=== PATIENT | female | born 1940 | race Caucasian/White ===

== ENCOUNTER → 2016-04-05 | Outpatient (CLI) | payer OTHER | LOC: FIMAGING 11:11 | DX: Z12.31 Encounter for screening mammogram for malignant neoplasm of breast (principal) | CPT/HCPCS: G0202 ==

== ENCOUNTER 2017-01-15 09:38 | Observation (INO) | payer OTHER ==
[2017-01-15] MEDS ORDERED: BACITRACIN IRRIGATION/NS 50,000 UNITS/1,000 ML BTL IRR ONE (09:40)
[2017-01-15] MEDS ORDERED: ceFAZolin 2 GM/SWFI 2 GM/20 ML SYR IVP ONE (09:40)
[2017-01-15] MEDS ORDERED: NS 1,000 ML IV ONE (09:40)
--- NOTE | 2017-01-15 10:03 | CPEKG ---
Heart Rate: 64 RR Interval: 938 P-R Interval: 184 QRSD Interval: 84 QT Interval: 392 QTC Interval: 405 P [place]: 72 QRS [place]: -64 T Wave [place]: -57 EKG Severity - ABNORMAL ECG - EKG Impression: SINUS RHYTHM EKG Impression: LEFT ANTERIOR FASCICULAR BLOCK EKG Impression: LOW VOLTAGE IN FRONTAL LEADS EKG Impression: NONSPECIFIC T ABNORMALITIES, DIFFUSE LEADS Electronically Signed By: Sotero Beauchamp 15-Jan-2017 10:48:34
[2017-01-15 10:20] LABS: ADD DIFF? NO; ADD MORPH? NO; ADD SCAN? NO; ATYPICAL LYMPHOCYTE FLAG 0 (0-99); FRAGMENT RBC FLAG 0 (0-99); HEMATOCRIT 47.6 % (38.0-47.0); LEFT SHIFT FLG 0 (0-99); LIPEMIA HEMOLYSIS FLAG 80 (0-99); MEAN CELL HEMOGLOBIN 30.2 pg (27.9-34.1); MEAN CELL HEMOGLOBIN CONCENTR. 33.6 g/dL (32.4-36.7); MEAN PLATELET VOLUME 10.8 fL (8.7-11.7); PLATELET CLUMPS FLAG 0 (0-99); PLATELET COUNT 184 10^3/uL (150-400); RED BLOOD CELL COUNT 5.29 10^6/uL (4.18-5.33); RED CELL DISTRIBUTION WIDTH 13.2 % (11.5-15.2)
[2017-01-15 10:29] LABS: INR 0.89 (0.83-1.16); PROTIME(PATIENT) 12.3 SEC (12.0-15.0)
[2017-01-15 10:32] LABS: ANION GAP 10 mEq/L (8-16); CALCIUM 9.3 mg/dL (8.5-10.4); CARBON DIOXIDE 25 mEq/l (22-31); CHLORIDE 108 mEq/L (97-110); CREATININE 0.8 mg/dL (0.6-1.0); GLOMERULAR FILTRATION RATE > 60; GLUCOSE 96 mg/dL (70-100); POTASSIUM 4.3 mEq/L (3.5-5.2); SODIUM 143 mEq/L (134-144)
[2017-01-15] MEDS ORDERED: fentaNYL 100 MCG/2 ML INJ ONE (10:37)
[2017-01-15] MEDS ORDERED: MIDAZOLAM 2 MG/2 ML VIAL ONE (10:37)
[2017-01-15] MEDS ORDERED: BUPIVACAINE 0.5% 30 ML SDV ONE (10:37)
[2017-01-15] MEDS ORDERED: LIDOCAINE 1% 300 MG/30 ML SDV ONE (10:37)
[2017-01-15] MEDS ORDERED: LIDO/EPI 1% **for epidural** 30 ML SDV ONE (10:37)
--- NOTE | 2017-01-15 10:44 | PDHPUP ---
History & Physical Update H&P update statement: This history and physical update is based on an assessment of the patient which was completed after admission or registration (within 24 hours), but prior to the surgery/procedure. H&P update: H&P reviewed & patient examined, no change in patient's condition since H&P completed
--- NOTE | 2017-01-15 10:44 | PDPROPOC ---
Sedation Plan of Care Sedation Plan of Care: vital signs stable, mental status noted, patient educated of risks, benefits, alternatives, patient can tolerate sedation ASA Classification: ASA 1 Planned drugs: fentanyl, midazolam Mallampati Score: Class 1 Mallampati Reference Image: Patient passed 3-3-2 rule?: Yes
[2017-01-15] MEDS ORDERED: IOPAMIDOL (ISOVUE-300) 150 ML BTL ONE (11:06)
--- NOTE | 2017-01-15 14:10 | CPEKG ---
Heart Rate: 77 RR Interval: 779 P-R Interval: 204 QRSD Interval: 90 QT Interval: 376 QTC Interval: 426 P [place]: 57 QRS [place]: -40 EKG Severity - ABNORMAL ECG - EKG Impression: SINUS RHYTHM EKG Impression: ATRIAL PREMATURE COMPLEX EKG Impression: LOW VOLTAGE THROUGHOUT EKG Impression: NONSPECIFIC T ABNORMALITIES, DIFFUSE LEADS Electronically Signed By: Sotero Beauchamp 15-Jan-2017 16:02:06
[2017-01-15] MEDS: ACETAMINOPHEN 325 MG TAB PO PRN ×2 (14:59→21:00)
--- NOTE | 2017-01-15 16:00 | EPPROC ---
Electrophysiology Procedure Note: PROCEDURE PERFORMED: 1. Implantation of an A/V Pacemaker 2. Subclavian vein angiography 3. Fluoroscopy INDICATION: Chronotropic incompetence. PROCEDURE NOTE: Patient presented to the cardiac catheterization laboratory in a fasting, post absorptive state . EP RN administered sedation. The left infraclavicular area was prepped and draped in the usual sterile fashion. Lidocaine plus bupivacaine was used for local anesthesia. Left subclavian venography was performed by injection of iodinated contrast into the left antecubital vein. This was done to assure patency of the vein and also to assess for any anatomical aberrations. Using a combination of blunt and sharp dissection and electrocautery, the dissection was carried down to the prepectoral fascia. A pocket was made in this anatomical plane. All bleeding was controlled with electrocautery. The pocket was packed with gauze soaked in antibiotic solution. Fluoroscopy was utilized during the entire procedure for venous access and placement of the leads. Using a direct stick technique the left extrathoracic axillary vein was accessed with 2 sticks using the modified Seldinger technique. Placement of the guidewires into the venous system was confirmed by low-pressure blood return and also by visualizing the guidewires advancing into the inferior vena cava. A purse string suture was applied around the guidewires. Two #6 Sinhala sheaths were advanced under fluoroscopic guidance over the guidewire. An active fixation ventricular lead was advanced into the right ventricular apex and screwed in place. An active fixation atrial lead was advanced into the right atrial appendage and screwed in place. The peel away sheaths were removed. Pacing thresholds, sensing parameters and lead impedances were measured. There was no diaphragmatic stimulation at maximum output. The leads were sutured to the prepectoral fascia with 3 nonabsorbable sutures each. The pocket was again inspected for any bleeding. The leads were attached to the pacemaker securely. The pacemaker was inserted into the pocket and secured in place with a nonabsorbable suture. Fluoroscopy was performed in NIELSEN and JACQUELINE planes to verify right-sided placement of the leads. Also fluoroscopy of the pacemaker pocket was performed. The pacemaker pocket was closed in 3 layers with absorbable monocryl sutures and leta. Appropriate dressing was applied. The patient left the cardiac catheterization laboratory in stable condition. Serial Numbers: 1. Device: HAIDER/[employer] ASSURITY MRI, [id number]. SN: [id number] 2. Atrial Lead: ABT/SJM TENDRIL STS, /46. SN: [id number] 3. Ventricular Lead: ABT/SJM TENDRIL STS, /52. SN: [id number] Stimulation Thresholds & Impedance Measurements: 1. Atrial Lead: 1.25V@0.5ms / 3.3mV / 455 ohm 2. Ventricular Lead 0.3v@0.5ms / 8.6mV / 704 Yovani Pacing Parameters 1. Pacing mode: DDDR 2. Lower rate: 60ppm 3. Upper tracking rate: 130 ppm 4. Upper sensor rate: 130 ppm Patient Problems: Problems Problem Status Onset Bradycardia Acute Pneumonia Acute UTI (urinary tract infection) Acute Left lower lobe pneumonia Acute
[2017-01-16 05:51] LABS: ANION GAP 9 mEq/L (8-16); CALCIUM 8.7 mg/dL (8.5-10.4); CARBON DIOXIDE 24 mEq/l (22-31); CHLORIDE 109 mEq/L (97-110); CREATININE 0.7 mg/dL (0.6-1.0); GLOMERULAR FILTRATION RATE > 60; GLUCOSE 90 mg/dL (70-100); POTASSIUM 4.1 mEq/L (3.5-5.2); SODIUM 142 mEq/L (134-144)
[2017-01-16 05:57] LABS: % IMMATURE GRANULYOCYTES 0.2 % (0.0-1.1); ABSOLUTE IMMATURE GRANULOCYTES 0.01 10^3/uL (0.00-0.10); ADD DIFF? NO; ADD MORPH? NO; ADD SCAN? NO; ATYPICAL LYMPHOCYTE FLAG 0 (0-99); FRAGMENT RBC FLAG 0 (0-99); HEMOGLOBIN 14.4 g/dL (12.6-16.3); LEFT SHIFT FLG 0 (0-99); LIPEMIA HEMOLYSIS FLAG 80 (0-99); MEAN CELL HEMOGLOBIN 30.2 pg (27.9-34.1); MEAN CELL HEMOGLOBIN CONCENTR. 33.5 g/dL (32.4-36.7); MEAN CELL VOLUME 90.1 fL (81.5-99.8); MEAN PLATELET VOLUME 10.9 fL (8.7-11.7); PLATELET CLUMPS FLAG 0 (0-99); PLATELET COUNT 165 10^3/uL (150-400); RED BLOOD CELL COUNT 4.77 10^6/uL (4.18-5.33); RED CELL DISTRIBUTION WIDTH 13.4 % (11.5-15.2)
[2017-01-16] MEDS: ACETAMINOPHEN 325 MG TAB PO PRN (06:43)
[2017-01-16 07:48] VITALS: BP 116/59; PULSE 72; RESP 18; TEMP 98.7; O2SAT 90
--- NOTE | 2017-01-16 09:06 | CPEKG ---
Heart Rate: 69 RR Interval: 870 P-R Interval: 192 QRSD Interval: 88 QT Interval: 416 QTC Interval: 446 P [place]: 58 QRS [place]: -62 T Wave [place]: 40 EKG Severity - OTHERWISE NORMAL ECG - EKG Impression: SINUS RHYTHM EKG Impression: LOW VOLTAGE IN FRONTAL LEADS Electronically Signed By: Sotero Beauchamp 16-Jan-2017 11:29:35
--- NOTE | 2017-01-16 12:15 | ASDISCHSUM ---
Discharge Information Plan Status:Home with No Needs Medically Cleared to Leave:01/15/2017 Discharge Date:01/16/2017 10:31 AM CM D/C Disposition:Home, Routine, Self-Care ADT D/C Disposition:Home, Routine, Self-Care Projected Discharge Date:01/16/2017 10:31 AM Transportation at D/C:Family Discharge Delay Reason: Follow-Up Date:01/16/2017 10:31 AM Discharge Slot: Final Diagnosis: Placement Information Patient Contact Information Contact Name:FRANCINE Relationship: Address:[address] [place] [address] City:[place] Alternate Phone: State/Zip Code:[place] [address] Email: Financial Information Financial Class: Primary Plan Desc:MEDICARE OUTPATIENT Primary Plan Number:[id number] Secondary Plan Desc:ARCELIA Secondary Plan Number:[id number] Assessment Information LACE LACE Length of stay for Answers: Less than 1 day current admission Acuity / Level of Care Answers: No. Emergency dept visits in Answers: 0 last 6 months Date Signed: 01/16/2017 10:03 AM Electronically Signed By:Stephanie Banerjee RN Intervention Information Intervention Type:*DANAE-Signed Date of Service:01/16/2017 11:27 AM Patient Type:Observation Staff Member:Maria De Jesus Escobar Hours: Discipline: Severity: Comment:
--- NOTE | 2017-01-16 18:57 | GDS ---
[f rep st] DISCHARGE SUMMARY DISCHARGE DIAGNOSIS: 1. Sick sinus syndrome. 2. Status post dual-chamber pacemaker implant. 3. Paroxysmal atrial fibrillation. 4. Prior pulmonary embolism. BRIEF HISTORY: This is a 76-year-old woman with a history of PAF pulmonary embolism with a Zio monit or demonstrating rapid ventricular rates in the setting of atrial fibrillation up to 180 beats per mi nute, as well as ventricular pauses up to 4 seconds. She has a history of syncope but none related t o these episodes. She is a patient of Dr. Jean Baptiste and was referred to Dr. Beauchamp for pacemaker implant. HOSPITAL COURSE: Dr. Beauchamp implanted a [employer] Assurity MRI dual-chamber pacemaker. S ettings: Mode is DDDR with a base rate of 60 beats per minute and upper rate of 130 beats per minute . On the morning of discharge, pacemaker interrogation demonstrated normal function with atrial thre shold capture of 0.75 V at 0.5 milliseconds. P-waves were 2.5 mV. Lead impedance is 450 ohms. RV c apture threshold was 0.375 V at 0.5 milliseconds. R-waves 7.3 mV and lead impedance 530 ohms. The p acemaker site was dry and intact with a gauze and Opsite bandage without any bleeding. There was mil d swelling. The patient denied any significant discomfort at the pacemaker site. No chest pain, pre ssure, or shortness of breath. Chest x-ray the morning of discharge demonstrated good lead placement and no pneumothorax. LAB WORK: WBC is 6.38, hemoglobin 14.4, hematocrit 43, platelets 165. Sodium 142, potassium 4.1, ch loride 109, bicarb 24, BUN 23, creatinine 0.7, glucose 90. PHYSICAL EXAMINATION: VITAL SIGNS: Blood pressure is 116/59, pulse is 72, respirations 18, temperat ure 37.1, O2 saturation on 2 L is 90%. GENERAL: She is alert and oriented in no acute distress, sit ting up in the chair. CARDIAC: Regular rate and rhythm without murmur, rub, or gallop. LUNGS: Dim inished breath sounds throughout and fine crackles in the bases. Pacemaker site gauze dressing intac t, no bleeding, mild swelling at the pacemaker pocket. DISCHARGE INSTRUCTIONS: The patient was given verbal and written post pacemaker implant instructions . DISCHARGE MEDICATIONS: Please see discharge medication reconciliation. Of note, Xarelto will be res tarted 48 hours post implant on the . FOLLOWUP: She has a followup for pacemaker and wound check at [facility] on January 24, 2017, at 11:30 and a followup with Dr. Beauchamp on February 21, 2017, at 1:30. /[id number]/MODL
== END 2017-01-16 10:31 | disposition home or self-care (01) ==
LOC: FCATH 09:38 → F2W 12:47
PROVIDERS: ADMIT Internal Medicine Cardiovascular Disease; ATTEND Internal Medicine Cardiovascular Disease
PROC: 0JH606Z Insertion of Pacemaker, Dual Chamber into Chest Subcutaneous Tissue and Fascia, Open Approach (ICD-10-PCS; principal; 2017-01-15)
PROC: 02HK3JZ Insertion of Pacemaker Lead into Right Ventricle, Percutaneous Approach (ICD-10-PCS; principal; 2017-01-15)
PROC: 02H63JZ Insertion of Pacemaker Lead into Right Atrium, Percutaneous Approach (ICD-10-PCS; principal; 2017-01-15)
DX: I49.5 Sick sinus syndrome (principal); I48.0 Paroxysmal atrial fibrillation; R55 Syncope and collapse; Z86.711 Personal history of pulmonary embolism; Z79.01 Long term (current) use of anticoagulants
CPT/HCPCS: 33208; 71010; 71020; 93005; C1785; C1898; J0690; J2250; Q9967; J3010

== ENCOUNTER → 2017-03-08 | Outpatient (CLI) | payer OTHER | LOC: BHFA 15:15 | PROVIDERS: ATTEND Internal Medicine Cardiovascular Disease | DX: I48.91 Unspecified atrial fibrillation (principal) ==

== ENCOUNTER → 2018-03-04 | Outpatient (CLI) | payer OTHER | LOC: BHFA 09:00 | PROVIDERS: ATTEND Internal Medicine Cardiovascular Disease | DX: I48.91 Unspecified atrial fibrillation (principal); R06.02 Shortness of breath | CPT/HCPCS: 78452; 93017; A9500; J2785 ==

== ENCOUNTER 2018-05-29 18:50 | Emergency (ER) | payer OTHER ==
[2018-05-29] MEDS ORDERED: ONDANSETRON 4 MG/2 ML VIAL IVP ONE (19:07)
[2018-05-29] MEDS ORDERED: NS 1,000 ML IV ONE (19:07)
[2018-05-29 19:30] LABS: PLATELET COUNT 163 10^3/uL (150-400)
[2018-05-29] MEDS ORDERED: ONDANSETRON 4MG PREPACK#2 BTL TAKEHOME ONE (19:40)
[2018-05-29] MEDS ORDERED: LOPERAMIDE HCL 2 MG CAP PO ONE (19:40)
--- NOTE | 2018-05-29 19:44 | EDPHY ---
H & P Stated Complaint: N/V/D since this am Time Seen by Provider: 05/29/18 19:07 HPI/ROS: CHIEF COMPLAINT: Vomiting and diarrhea HISTORY OF PRESENT ILLNESS: 78-year-old female presents with vomiting and diarrhea. Onset of loose stools at 3:00 a.m. Multiple episodes of watery stools throughout the day. Onset of nausea and vomiting this afternoon. Associated with joint achiness and abdominal cramping. No fever or chills. has diarrhea, onset today, no vomiting. Concerned about influenza. REVIEW OF SYSTEMS: complete 10 point ROS reviewed and is negative except for the noted elements in the HPI - Personal History Tetanus Vaccine Date: < 10 YEARS - Medical/Surgical History Hx Asthma: No Hx Chronic Respiratory Disease: Yes Hx Diabetes: No Hx Cardiac Disease: Yes Hx Renal Disease: No Hx Cirrhosis: No Hx Alcoholism: No Hx HIV/AIDS: No Hx Splenectomy or Spleen Trauma: No Other PMH: Breast cancer, PE, michael, appy, tonsilectomy, pneumonia, macular degeneration, Afib, chronic hypoxia on home oxygen - Social History Smoking Status: Former smoker Alcohol Use: Sober Additional Social History: - Physical Exam Exam: General Appearance: Alert, pleasant Eyes: Pupils equal and round, no conjunctival pallor ENT, Mouth: Mucous membranes dry Neck: Normal inspection Respiratory: Lungs are clear to auscultation Cardiovascular: Regular rate and rhythm Gastrointestinal: Abdomen is soft and nontender Neurological: A&O, nonfocal, normal gait Skin: Warm and dry Extremities: Normal inspection Psychiatric: Mood and affect normal Constitutional: Initial Vital Signs Temperature (C) 37.1 C 05/29/18 19:01 Heart Rate 85 05/29/18 19:01 Respiratory Rate 16 05/29/18 19:01 Blood Pressure 107/73 05/29/18 19:01 O2 Sat (%) 88 L 05/29/18 19:01 O2 Delivery Mode Room Air O2 (L/minute) 2 Allergies/Adverse Reactions: Anesthetics - Amide Type Allergy (Verified 05/02/13 19:26) Other-Enter Comments Anesthetics - Linsey Type- Parabens [Anesthetics - Linsey Type] Allergy (Verified 05/02/13 19:26) Other-Enter Comments general anesthetics Allergy (Severe, Uncoded 05/02/13 19:02) Other-Enter Comments Home Medications: Medication Instructions Recorded Colestipol HCl [Colestid (*)] 1 gm PO HS 05/03/13 Rivaroxaban [Xarelto] 20 mg PO HS #0 01/16/17 Medical Decision Making ED Course/Re-evaluation: This patient presents with vomiting and diarrhea, consistent with gastroenteritis. I do not suspect a serious intra-abdominal etiology for symptoms, given benign abdominal exam. IV normal saline 1 L and Zofran 4 mg IV given. Imodium given for diarrhea. 8:00 p.m.-feels much better, tolerating oral fluids well, wants to go home. Abdomen is soft and nontender. Discharge instructions given. Zofran prepack given. Differential Diagnosis: Differential diagnosis includes though it is not limited to appendicitis, cholecystitis, diverticulitis, pyelonephritis, bowel perforation, small bowel obstruction. - Data Points Laboratory Results: Laboratory Results 05/29/18 19:20 05/29/18 19:20 Medications Given: Discontinued Medications Sodium Chloride (Ns) 1,000 mls @ 0 mls/hr IV EDNOW ONE; Wide Open PRN Reason: Protocol Stop: 05/29/18 19:08 Last Admin: 05/29/18 19:20 Dose: 1,000 mls Loperamide HCl ( Imodium) 2 mg PO EDNOW ONE Stop: 05/29/18 19:41 Last Admin: 05/29/18 19:52 Dose: 2 mg Ondansetron HCl (Zofran) 4 mg IVP EDNOW ONE Stop: 05/29/18 19:08 Last Admin: 05/29/18 19:21 Dose: 4 mg Ondansetron HCl (Zofran Odt 4 Mg Prepack#2) 1 btl TAKEHOME EDNOW ONE Stop: 05/29/18 19:41 Last Admin: 05/29/18 20:22 Dose: 1 btl Departure - Departure Disposition: Home, Routine, Self-Care Clinical Impression: Gastroenteritis Condition: Good Instructions: Gastroenteritis (ED) Additional Instructions: 1. Clear liquids for 24 hours. 2. Advance diet as tolerated. I suggest the BRAT diet to start: bananas, rice, applesauce and toast. 3. Return for worsening symptoms, persistent vomiting, abdominal pain, any concerns. 4. Take Zofran every 6 hours as needed for nausea. 5. Take Imodium as directed on the packagingg as needed for diarrhea. 6. Call in 2-3 hours for influenza test results. Referrals: Surekha Burleson MD [Primary Care Provider] - As per Instructions
[2018-05-29 20:27] VITALS: BP 115/76
== END 2018-05-29 20:26 | disposition home or self-care (01) ==
DX: K52.9 Noninfective gastroenteritis and colitis, unspecified (principal)
CPT/HCPCS: 96374; 99284; J2405

== ENCOUNTER → 2018-06-28 | Outpatient (CLI) | payer OTHER | LOC: FIMAGING 10:24 | PROVIDERS: ATTEND Internal Medicine | DX: E04.1 Nontoxic single thyroid nodule (principal) ==